=== PATIENT | male | born 1965 | race Caucasian/White ===

== ENCOUNTER 2019-09-27 19:08 | Emergency (ER) | payer OTHER ==
--- NOTE | 2019-09-27 19:40 | PDOC ---
History of Present Illness - General Chief Complaint: Injury Stated Complaint: FALL Time Seen by Provider: 09/27/19 19:39 History Source: Patient Exam Limitations: No Limitations - History of Present Illness Initial Comments: 09/27/19 20:03 54yM w PMHx multiple sclerosis presenting from [facility] w head, ruth knee, back , L wrist pain s/p fall. 6:30p dropped phone, fell forward from wheelchair, hitting L temporal head on grass, sustained abrasions and pain of ruth hands and knees, mild neck/lumbar pain. No LOC, not on anticoagulation. Denies chest pain , vision change, SOB, vision change, nausea/vomiting, AB pain. Cannot move ruth legs at baseline. Doesn't remember last tdap. Received tylenol at facility before coming to ED Past History - Past Medical History Allergies/Adverse Reactions: Allergies Allergy/AdvReac Type Severity Reaction Status Date / Time No Known Allergies Allergy Verified 09/27/19 20:12 Review of Systems - Review of Systems Constitutional: No: Chills, Fever HEENTM: No: Eye Pain, Recent change in vision, Nose Pain, Throat Pain Respiratory: No: Cough, Shortness of Breath Cardiac (ROS): No: Chest Pain, Irregular Heart Rate, Palpitations, Syncope, Chest Tightness ABD/GI: No: Abdominal Distended, Constipated, Diarrhea, Nausea, Vomiting : No: Burning, Dysuria, Frequency Musculoskeletal: Yes: Back Pain, Joint Pain Integumentary: Yes: Other (abrasions). No: Bruising, Dryness, Erythema Neurological: Yes: Headache. No: Seizure, Tingling Psychiatric: No: Anxiety, Depression, Stressors Endocrine: No: Excessive Sweating, Flushing, Intolerance to Cold, Intolerance to Heat Hematologic/Lymphatic: No: Anemia, Blood Clots *Physical Exam - Physical Exam General Appearance: Yes: Nourished, Appropriately Dressed, Mild Distress HEENT: positive: EOMI, LIAT, Normal Voice, Hearing Grossly Normal. negative: Scleral Icterus (R), Scleral Icterus (L), Nasal Congestion, Rhinorrhea Neck: positive: Tender (mild midline), Supple. negative: Rigid, Decreased range of motion (full ROM) Respiratory/Chest: positive: Lungs Clear, Normal Breath Sounds. negative: Chest Tender, Respiratory Distress, Crackles, Rales, Rhonchi, Stridor, Wheezing Cardiovascular: positive: Regular Rhythm, Regular Rate, S1, S2. negative: Edema , Murmur Gastrointestinal/Abdominal: positive: Normal Bowel Sounds, Flat, Soft. negative : Tender, Organomegaly, Distended, Guarding, Rebound, Tenderness, Hernia, Mass Rectal Exam: positive: normal rectal tone Musculoskeletal: positive: Vertebral Tenderness (mild lumbar), Other (no vertebral stepoffs). negative: CVA Tenderness (R), CVA Tenderness (L) Extremity: positive: Other (erythema, abrasions L knee, ruth palmar surfaces hands. mild tenderness L 3rd MCP, over patella ruth). 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 negative: Motor Strength 5/5 (1/5 BLE strength (baseline)), Numbness, Sensory Deficit, Confused, Disoriented Medical Decision Making - Medical Decision Making 09/27/19 20:12 Head/c-spine CT - no acute bleed/infarct/mass/fracture/subluxation of head or c- spine. Mild occipital scalp swelling, cavum septum vergae, mild ischemic white matter changes. Mild spinal canal narrowing L hand XR L/R knee XR lumbar/sacral XR --- 54yM w PMHx multiple sclerosis presenting w L temporal head, ruth knee, lumbar back, L wrist pain s/p mechanical fall. Neurovascular intact. Head/c-spine CT did not show acute bleed/infarct/mass/fracture/subluxation. Given tdap shot, ibuprofen for pain Anticipate DC home 09/27/19 21:22 Discharge - Discharge Information Problems reviewed: Yes Clinical Impression/Diagnosis: Abrasions of multiple sites Fall Qualifiers: Encounter type: initial encounter Qualified Code(s): W19.XXXA - Unspecified fall, initial encounter Condition: Good Disposition: HOME - Admission No - Follow up/Referral Referrals: Anita Romero MD [Primary Care Provider] - - Patient Discharge Instructions Additional Instructions: You were seen for pain and abrasions after falling. Your imaging did not show anything concerning. You were given medication and a tetanus shot Take tylenol or ibuprofen and ice your wounds for your pain. Come back to the ED if you have worsening pain, vision change, lose consciousness, cannot move your extremities, or start vomiting. - Post Discharge Activity
[2019-09-27] MEDS ORDERED: ACETAMINOPHEN 325 MG TABLET (FP) PO ONE (20:00)
[2019-09-27] MEDS ORDERED: ACETAMINOPHEN 325 MG TABLET (FP) ONE (20:17)
[2019-09-27 20:18] VITALS: BMI 60.5
[2019-09-27] MEDS ORDERED: IBUPROFEN 600 MG TABLET (FP) PO ONE ×2 (20:19→22:10)
--- NOTE | 2019-09-27 21:10 | PDOC ---
Documentation entered by Isidoro Fisher SCRIBE, acting as scribe for Kailey Nath MD. Kailey Nath MD: This documentation has been prepared by the Natalia cervantes Nirvannie, SCRIBE, under my direction and personally reviewed by me in its entirety. I confirm that the documentation accurately reflects all work, treatment, procedures, and medical decision making performed by me. Attending Attestation - Resident Resident Name: Neri Ambriz - ED Attending Attestation I have performed the following: I have examined & evaluated the patient, The case was reviewed & discussed with the resident, I agree w/resident's findings & plan, Exceptions are as noted - HPI HPI: 09/27/19 21:02 The patient is a 54 year old male, with a significant past medical history of MS (unable to move blt LE), who presents to the emergency department via EMS from [facility] s/p mechanical fall with headache, knee, back, and left wrist pain. As per patient, he was leaning forward in her wheelchair to grab her phone after she dropped it subsequently falling forward onto the grass. He denies any LOC or anticoagulation. He denies any recent fevers, chills, or dizziness. He denies any recent nausea, vomiting, diarrhea or constipation. He denies any recent chest pain or shortness of breath. He denies any recent dysuria, frequency, urgency or hematuria. Allergies: NKDA Primary Care Physician: Dr. Santizo - Physicial Exam PE: 09/27/19 20:28 GENERAL: The patient is in no acute distress, very pleasant and interactive with examiner ENT: Ears normal, nares patent, oropharynx clear without exudates. Moist mucous membranes. NECK: Normal range of motion, supple, (+) midline tenderness LUNGS: Breath sounds equal, clear to auscultation bilaterally. No wheezes, and no crackles. HEART:Regular rate and rhythm, normal S1 and S2 without murmur, rub or gallop. ABDOMEN: Soft, nontender, normoactive bowel sounds. EXTREMITIES: Unable to move lower extremities, moving upper extremities with no limitations NEUROLOGICAL: Cranial nerves II through XII grossly intact. Normal speech. No focal neurological deficits. SKIN: Abrasions noted to dorsum of bilateral hands, no bleeding - Medical Decision Making 09/27/19 20:29 54 yo M h/o MS, wheelchair bound presenting with a complaint of mechanical fall Pt has complaint of neck pain, hand pain, knee pain Will do: CT head and C spine Xray hands, knees Boostrix (pt has abrasions) Will plan to d/c home Pt is wheelchair bound and lives at [facility] 09/27/19 22:26 Head/c-spine CT - no acute bleed/infarct/mass/fracture/subluxation of head or c- spine. Mild occipital scalp swelling, cavum septum vergae, mild ischemic white matter changes. Mild spinal canal narrowing L hand XR - no fracture or dislocation L/R knee XR - no fracture or dislocation lumbar/sacral XR - no fracture or dislocaiton Will discharge to home Follow up with PMD
[2019-09-27] MEDS ORDERED: DIPHTH,PERTUSS(ACELL),TET 0.5 ML DISP.SYRIN IM ONE ×2 (22:15→23:15)
[2019-09-28 14:14] VITALS: BP 127/80; PULSE 82; TEMP 98.4
== END 2019-09-28 14:32 ==
LOC: JER 19:08
DX: S00.81XA Abrasion of other part of head, initial encounter (principal); M25.532 Pain in left wrist; M25.561 Pain in right knee; M25.562 Pain in left knee; M54.9 Dorsalgia, unspecified; W05.0XXA Fall from non-moving wheelchair, initial encounter; Y93.89 Activity, other specified; Y92.128 Other place in nursing home as the place of occurrence of the external cause; Y99.8 Other external cause status; G35 Multiple sclerosis; Z99.3 Dependence on wheelchair
CPT/HCPCS: 70450-TC; 72100-TC-FY; 72125-TC; 73110-TC-LT-FY; 73130-TC-LT-FY; 73562-TC-LT-FY; 73562-TC-RT-FY; 90715; 99282-25

== ENCOUNTER 2019-11-16 09:43 | Inpatient (IN) | payer OTHER ==
[2019-11-16] MEDS ORDERED: SODIUM CHLORIDE IV ONE (10:14)
--- NOTE | 2019-11-16 10:23 | PDOC ---
Attending Attestation - Resident Resident Name: AidenClaudia - ED Attending Attestation I have performed the following: I have examined & evaluated the patient, The case was reviewed & discussed with the resident, I agree w/resident's findings & plan, Exceptions are as noted - HPI HPI: 11/16/19 10:20 54 yo Male h/o MS here from [facility] wih fever, lethargy. pt denies recent cough, n/v or abd pain. states he does have lower abd pain. n other comlaints. does not self cath. - Physicial Exam PE: 11/16/19 10:22 awake alert dry mucous membranes. lungs with crackles to right base, heart normal tachycardia. abd soft distended, rlq ttp. no rebound no guarding. no cva tenderness. - Medical Decision Making 11/16/19 10:22 54 yo male h/o MS here with lethargy, fever. sepsis supsected. differential pna , uti, appendictis or other intrabdominal tendenress. mild rlq ttp on exam. plan cath ua, cultures labs cxr. tylenol and fluid. will yaneli require admission for sepsis
[2019-11-16] MEDS ORDERED: ACETAMINOPHEN INJECTION 100 ML IVPB ONE (10:33)
[2019-11-16 10:34] LABS: BASO % 0.8 % (0-2.0); HEMATOCRIT 43.1 % (35.4-49); HEMOGLOBIN 14.6 GM/dL (11.7-16.9); LYMPH % 7.7 % (8-40); MCH 30.7 pg (25.7-33.7); MCHC 33.8 g/dl (32.0-35.9); MEAN PLT VOLUME 8.8 fl (7.5-11.1); MONO % 9.6 % (3.8-10.2); NEUT % 81.9 % (42.8-82.8); PLATELET COUNT 270 K/MM3 (134-434); RBC 4.74 M/mm3 (4.00-5.60); RDW 13.3 % (11.9-15.9); WHITE BLOOD COUNT 11.6 K/mm3 (4.0-10.0)
[2019-11-16 10:48] LABS: ACTIVATED PTT 36.5 SECONDS (25.2-36.5)
[2019-11-16 10:51] LABS: INR 1.35 (0.83-1.09)
--- NOTE | 2019-11-16 10:58 | PDOC ---
History of Present Illness - General Chief Complaint: SIRS, Suspected/Possible Stated Complaint: SEPSIS Time Seen by Provider: 11/16/19 10:16 - History of Present Illness Initial Comments: 11/16/19 12:19 The patient is a 54 y/o male with a PMH of MS (lives @ [facility], non-ambulatory @ baseline) here with fever (Tmax 101 @ [facility]). Parents @ bedside assist in history and also report patient had a 2-3 minute episode of slurred speech yesterday which was self-resolving. The patient reports that he is more tired than usual the last few days and denies any focal weakness, numbness, tingling. Reports viral URI symptoms including runny nose and non-productive cough. 10 point ROS is negative including no chest pain, no shortness of breath, no abdominal pain, no nausea/vomiting, no diarrhea/constipation. PMD: Dr. Santizo As per EMR, patient has previous evaluations in our ED for fall (08/2019) and has h/o MRI in 2017 showing significant hyperintensity (demyelination) in the T2 region. Past History - Past Medical History Allergies/Adverse Reactions: Allergies Allergy/AdvReac Type Severity Reaction Status Date / Time No Known Allergies Allergy Verified 09/27/19 20:12 Home Medications: Ambulatory Orders Acetaminophen [Tylenol] 325 mg PO QID PRN 11/16/19 Baclofen [Lioresal -] 10 mg PO BID 11/16/19 Cyanocobalamin [Vitamin B12 -] 500 mcg PO BID 11/16/19 Dextran 70/Hypromellose/Pf [Artificial Tears Drops] 1 each OU TID PRN 11/16/19 Interferon Beta-1B [Betaseron] 0.3 mg SQ ASDIR 11/16/19 Lactobacil 2-S.thermo-Bifido 1 [Vsl#3 Capsule] 1 each PO DAILY 11/16/19 Polyethylene Glycol 3350 [Gavilax] 17 gm PO BID 11/16/19 Sennosides/Docusate Sodium [Senna Plus Tablet] 2 each PO HS 11/16/19 COPD: No GI Disorders: Yes (GERD) Other medical history: MS paraplegia - Immunization History Immunization Up to Date: Yes - Psycho Social/Smoking Cessation Hx Smoking History: Unknown if ever smoked Number of Cigarettes Smoked Daily: 2 Hx Alcohol Use: No Drug/Substance Use Hx: No Review of Systems - Review of Systems Constitutional: Yes: Fever HEENTM: No: Blurred Vision Respiratory: Yes: Cough. No: Shortness of Breath, Productive cough, Hemoptysis Cardiac (ROS): No: Chest Pain, Lightheadedness, Palpitations, Syncope ABD/GI: No: Constipated, Diarrhea, Nausea, Vomiting Neurological: No: Numbness, Tingling *Physical Exam - Vital Signs Last Vital Signs Temp Pulse Resp BP Pulse Ox 102.7 F H 92 H 22 H 125/76 96 11/16/19 09:57 11/16/19 09:57 11/16/19 09:57 11/16/19 09:57 11/16/19 10:51 - Physical Exam General Appearance: Yes: Nourished, Appropriately Dressed HEENT: positive: Normal Voice, Hearing Grossly Normal Neck: positive: Trachea midline, Supple Respiratory/Chest: positive: Lungs Clear, Normal Breath Sounds Cardiovascular: positive: S1, S2, Edema Vascular Pulses: Dorsalis-Pedis (R): 2+, Doralis-Pedis (L): 2+ Gastrointestinal/Abdominal: positive: Normal Bowel Sounds, Soft, Other (mild RLQ TTP) Musculoskeletal: negative: CVA Tenderness (R), CVA Tenderness (L) Extremity: positive: Normal Capillary Refill, Normal Inspection Integumentary: positive: Normal Color, Dry, Warm 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 negative: Facial Droop, Confused, Disoriented ED Treatment Course - LABORATORY CBC & Chemistry Diagram: 11/17/19 05:25 11/17/19 05:25 - ADDITIONAL ORDERS Additional order review: Laboratory Results 11/16/19 11/16/19 10:00 10:00 PT with INR 16.00 H INR 1.35 H PTT (Actin FS) 36.5 VBG pH Cancelled POC VBG pCO2 Cancelled POC VBG pO2 Cancelled VBG HCO3 Cancelled VBG O2 Sat (Noble) Cancelled VBG Base Excess Cancelled 11/16/19 10:00 RBC 4.74 MCV 91.0 MCHC 33.8 RDW 13.3 MPV 8.8 Neutrophils % 81.9 Lymphocytes % 7.7 L Monocytes % 9.6 Eosinophils % 0.0 Basophils % 0.8 Medical Decision Making - Medical Decision Making 54 y/o male w/MS here w/fever and viral URI symptoms. Also witnessed intermittent episode of slurred speech yesterday. Febrile (102.7) and RR 22 at presentation. Adult ED sepsis initiated. PE significant for mild RLQ TTP w/o peritoneal sign. Will evaluate for CVA/TIA. Consider PNA, UTI, Influenza as possible source of sepsis. ED Course: Patient Influenza A positive Iso precautions + Oseltamavir given patient's coming from assisted living facility will admit Head CT negative Case d/w Dr. Janet Cloud. Patient admitted to inpatient medicine service. Clinical Impression: Influenza A Discharge - Discharge Information Problems reviewed: Yes Clinical Impression/Diagnosis: Influenza A Condition: Fair - Admission Yes - Follow up/Referral - Patient Discharge Instructions - Post Discharge Activity
[2019-11-16 11:08] LABS: VENOUS PC02 32.6 mmHg (38-52); VENOUS PH 7.45 (7.31-7.41)
[2019-11-16 11:10] LABS: ALBUMIN 3.1 g/dl (3.4-5.0); ALK PHOS 122 U/L (45-117); ANION GAP 8 MMOL/L (8-16); BILIRUBIN,TOTAL 0.4 mg/dL (0.2-1); BLOOD UREA NITROGEN 19.5 mg/dL (7-18); CALCIUM 8.1 mg/dL (8.5-10.1); CHLORIDE 108 mmol/L (98-107); CO2 23 mmol/L (21-32); GLUCOSE,RANDOM 105 mg/dL (74-106); POTASSIUM 3.8 mmol/L (3.5-5.1); SGOT/AST 30 U/L (15-37); SGPT/ALT 46 U/L (13-61); SODIUM 138 mmol/L (136-145); TOT PROT 6.7 g/dl (6.4-8.2)
[2019-11-16] MEDS ORDERED: ACETAMINOPHEN 1000 MG/100 ML VIAL (NON FORMULARY) IVPB ONE (11:13)
[2019-11-16] MEDS ORDERED: OSELTAMIVIR PHOSPHATE 75 MG CAPSULE PO ONE (11:40)
[2019-11-16] MEDS ORDERED: OSELTAMIVIR PHOSPHATE 75 MG CAPSULE ONE (12:14)
[2019-11-16 12:42] LABS: URINE APPEARANCE CLEAR; URINE BILIRUBIN NEGATIVE (NEGATIVE); URINE COLOR YELLOW; URINE GLUCOSE (UA) NEGATIVE (NEGATIVE); URINE KETONE TRACE (NEGATIVE); URINE LEUK ESTERASE NEGATIVE (NEGATIVE); URINE NITRITE NEGATIVE (NEGATIVE); URINE PROTEIN TRACE (NEGATIVE); URINE UROBILINOGEN 0.2 mg/dL (0.2-1.0)
--- NOTE | 2019-11-16 13:37 | HP ---
Admitting History and Physical - Primary Care Physician PCP: Anita Romero - Admission History of Present Illness: patient seen and examined in the emergency room Chart is reviewed Case discussed with emergency room attending and resident In summary The patient is a 54 y/o male with a PMH of MS (lives @ [facility], non-ambulatory @ baseline----sensitivity to fever Workup in the emergency room--- positive for influenza A CT head negative as well as chest x-ray temp of 102 in the emergency room Cultures sent Will be admitted to floor Tamiflu and Tylenol given Patient alert and awake Comfortable feels better History Source: Patient, Medical Record Limitations to Obtaining History: No Limitations - Smoking History Smoking history: Unknown if ever smoked Aproximately how many cigarettes per day: 2 - Alcohol/Substance Use Hx Alcohol Use: No Home Medications - Allergies Allergies/Adverse Reactions: Allergies Allergy/AdvReac Type Severity Reaction Status Date / Time No Known Allergies Allergy Verified 09/27/19 20:12 - Home Medications Home Medications: Ambulatory Orders Acetaminophen [Tylenol] 325 mg PO QID PRN 11/16/19 Baclofen [Lioresal -] 10 mg PO BID 11/16/19 Cyanocobalamin [Vitamin B12 -] 500 mcg PO BID 11/16/19 Dextran 70/Hypromellose/Pf [Artificial Tears Drops] 1 each OU TID PRN 11/16/19 Interferon Beta-1B [Betaseron] 0.3 mg SQ ASDIR 11/16/19 Lactobacil 2-S.thermo-Bifido 1 [Vsl#3 Capsule] 1 each PO DAILY 11/16/19 Polyethylene Glycol 3350 [Gavilax] 17 gm PO BID 11/16/19 Sennosides/Docusate Sodium [Senna Plus Tablet] 2 each PO HS 11/16/19 Review of Systems - Review of Systems Constitutional: reports: Fever, Weakness Eyes: reports: No Symptoms HENT: reports: No Symptoms Neck: reports: No Symptoms Cardiovascular: reports: No Symptoms Respiratory: reports: Cough, SOB Gastrointestinal: reports: No Symptoms Genitourinary: reports: No Symptoms Neurological: reports: Pre-Existing Deficit, Other Psychiatric: reports: No Symptoms Physical Examination Vital Signs: Vital Signs Temperature 98 F 11/16/19 13:22 Pulse Rate 81 11/16/19 13:22 Respiratory Rate 18 11/16/19 13:22 Blood Pressure 127/78 11/16/19 13:22 O2 Sat by Pulse Oximetry (%) 98 11/16/19 13:22 Constitutional: Yes: No Distress, Calm Eyes: Yes: Conjunctiva Clear HENT: Yes: Other (mild congestion) Neck: Yes: Supple, Other (no lymphadenopathy) Cardiovascular: Yes: Regular Rate and Rhythm Respiratory: Yes: CTA Bilaterally Gastrointestinal: Yes: Soft Edema: No Neurological: Yes: Alert, Pre-Existing Deficit Labs: CBC, BMP 11/16/19 10:00 11/16/19 10:00 Imaging - Results Chest X-ray: Report Reviewed Cat Scan: Report Reviewed Problem List - Problems (1) Influenza A Code(s): J10.1 - FLU DUE TO OTH IDENT INFLUENZA VIRUS W OTH RESP MANIFEST (2) Multiple sclerosis Code(s): G35 - MULTIPLE SCLEROSIS Assessment/Plan admit to floor droplet precautions Tamiflu Fluids Monitor labs Follow-up cultures DVT prophylaxis Further recommendations per clinical course Will follow
[2019-11-16] MEDS ORDERED: ACETAMINOPHEN 325 MG TABLET (FP) PO PRN (13:38)
[2019-11-16] MEDS ORDERED: ARTIFICIAL TEARS (POLYVINYL ALCOHOL) OPTH DROPS OU PRN (13:38)
[2019-11-16] MEDS: D5-1/2NS+20 MEQ KCL - 20 MEQ/1,000 ML INFUS.BAG IV SCH (14:00)
[2019-11-16] MEDS ORDERED: ACETAMINOPHEN 325 MG TABLET (FP) ONE (20:40)
[2019-11-16] MEDS ORDERED: BACLOFEN 10 MG TABLET (FP) ONE (22:29)
[2019-11-16] MEDS: BACLOFEN 10 MG TABLET (FP) PO SCH (22:52)
[2019-11-16] MEDS: SENNOSIDES/DOCUSATE COMBO (SENNA PLUS) TABLET (UD) PO SCH (22:52)
[2019-11-16] MEDS: CYANOCOBALAMIN 1,000 MCG TABLET (FP) PO SCH (22:52)
[2019-11-16] MEDS: POLYETHYLENE GLYCOL 3350 119 GM BTL PO SCH (23:29)
[2019-11-17 06:07] LABS: BASO % 0.9 % (0-2.0); EOS % 0.1 % (0-4.5); HEMOGLOBIN 14.4 GM/dL (11.7-16.9); MCH 30.9 pg (25.7-33.7); MCHC 34.3 g/dl (32.0-35.9); MEAN PLT VOLUME 8.4 fl (7.5-11.1); MONO % 11.9 % (3.8-10.2); NEUT % 68.1 % (42.8-82.8); PLATELET COUNT 227 K/MM3 (134-434); RBC 4.67 M/mm3 (4.00-5.60); RDW 13.3 % (11.9-15.9); WHITE BLOOD COUNT 6.9 K/mm3 (4.0-10.0)
[2019-11-17 06:33] LABS: ALBUMIN 2.9 g/dl (3.4-5.0); BILIRUBIN,TOTAL 0.4 mg/dL (0.2-1); BLOOD UREA NITROGEN 11.6 mg/dL (7-18); CALCIUM 8.2 mg/dL (8.5-10.1); CREATININE 0.8 mg/dL (0.55-1.3); POTASSIUM 3.9 mmol/L (3.5-5.1); TOT PROT 6.4 g/dl (6.4-8.2)
--- NOTE | 2019-11-17 10:11 | EKG ---
Test Reason : Blood Pressure : / mmHG Vent. Rate : 094 BPM Atrial Rate : 094 BPM P-R Int : 134 ms QRS Dur : 084 ms QT Int : 494 ms P-R-T Axes : 058 018 057 degrees QTc Int : 617 ms NORMAL SINUS RHYTHM LOW VOLTAGE QRS SEPTAL INFARCT , AGE UNDETERMINED ABNORMAL ECG NO PREVIOUS ECGS AVAILABLE Confirmed by Nannette Gordillo ([id number]) on 11/17/2019 10:10:44 AM Referred By: Confirmed By:Nannette Gordillo
[2019-11-17] MEDS: LACTOBACILLUS ACIDOPHILUS 1 TABLET PO SCH (11:00)
[2019-11-17] MEDS: BACLOFEN 10 MG TABLET (FP) PO SCH ×2 (11:01→22:03)
[2019-11-17] MEDS: ENOXAPARIN NA (PORCINE) 40 MG/0.4 ML DISP.SYRIN SQ SCH (11:01)
[2019-11-17] MEDS: CYANOCOBALAMIN 1,000 MCG TABLET (FP) PO SCH ×2 (11:02→22:03)
[2019-11-17] MEDS: POLYETHYLENE GLYCOL 3350 119 GM BTL PO SCH ×2 (12:02→22:02)
--- NOTE | 2019-11-17 12:34 | PN ---
Progress Note (short form) - Note Progress Note: Pt seen/ examined in er feesl better cough + afebrile Vital Signs Temp 98.7 F 11/16/19 22:50 Pulse 77 11/17/19 07:11 Resp 23 H 11/17/19 07:11 BP 111/56 L 11/17/19 07:11 Pulse Ox 96 11/17/19 07:11 Intake & Output 11/16/19 11/17/19 11/17/19 23:59 11:59 23:59 Intake Total 1500 Output Total 200 Balance 1300 Intake: IV 1500 Normal Saline - 2,273 ml 1500 @ 1136.5 mls/hr IV ONCE ONE Rx#:[id number] Output: Urine 200 Straight Cath 200 Other: # Unmeasured Voids Straight Cath 1 Active Medications Acetaminophen (Tylenol -) 325 mg PO Q6H PRN PRN Reason: FEVER Last Admin: 11/16/19 20:48 Dose: 325 mg Artificial Tears (Artificial Tears) 1 drop OU TID PRN PRN Reason: DRY EYES Baclofen (Lioresal -) 10 mg PO BID [facility] Last Admin: 11/17/19 11:01 Dose: 10 mg Cyanocobalamin (Vitamin B12 -) 500 mcg PO BID [facility] Last Admin: 11/17/19 11:02 Dose: 500 mcg Enoxaparin Sodium (Lovenox -) 40 mg SQ DAILY [facility] Last Admin: 11/17/19 11:01 Dose: 40 mg Potassium Chloride/Dextrose/Sod Cl (D5-1/2ns+20 Meq Kcl -) 20 meq in 1,000 mls @ 100 mls/hr IV ASDIR [facility] Last Admin: 11/16/19 14:00 Dose: 100 mls/hr Lactobacillus Acidophilus (Bacid -) 1 tab PO DAILY [facility] Last Admin: 11/17/19 11:00 Dose: 1 tab Polyethylene Glycol (Miralax (For Daily Use) -) 17 gm PO BID [facility] Last Admin: 11/17/19 12:02 Dose: Not Given Senna/Docusate Sodium (Pericolace -) 2 tablet PO HS [facility] Last Admin: 11/16/19 22:52 Dose: 2 tablet CBC, BMP 11/17/19 05:25 11/17/19 05:25 Microbiology 11/16/19 11:00 Blood Culture - Preliminary Blood - Peripheral Venous NO GROWTH OBTAINED AFTER 24 HOURS, INCUBATION TO CONTINUE FOR 4 DAYS. 11/16/19 10:00 Blood Culture - Preliminary Blood - Peripheral Venous NO GROWTH OBTAINED AFTER 24 HOURS, INCUBATION TO CONTINUE FOR 4 DAYS. 11/16/19 12:25 Urine Culture - Final Urine - Urine Clean Catch NO GROWTH OBTAINED Physical Examination Constitutional: Yes: No Distress, Calm Eyes: Yes: Conjunctiva Clear HENT: Yes: Other (mild congestion) Neck: Yes: Supple, Other (no lymphadenopathy) Cardiovascular: Yes: Regular Rate and Rhythm Respiratory: Yes: CTA Bilaterally Gastrointestinal: Yes: Soft Edema: No Neurological: Yes: Alert, Pre-Existing Deficit Imaging - Results Chest X-ray: Report Reviewed Cat Scan: Report Reviewed Problem List - Problems (1) Influenza A Code(s): J10.1 - FLU DUE TO OTH IDENT INFLUENZA VIRUS W OTH RESP MANIFEST (2) Multiple sclerosis Code(s): G35 - MULTIPLE SCLEROSIS Assessment/Plan better droplet precautions Tamiflu Fluids Monitor labs Follow-up cultures-- ve so far DVT prophylaxis Further recommendations per clinical course Will follow Problem List - Problems (1) Influenza A Code(s): J10.1 - FLU DUE TO OTH IDENT INFLUENZA VIRUS W OTH RESP MANIFEST (2) Multiple sclerosis Code(s): G35 - MULTIPLE SCLEROSIS
[2019-11-17] MEDS: D5-1/2NS+20 MEQ KCL - 20 MEQ/1,000 ML INFUS.BAG IV SCH (15:30)
[2019-11-17 17:24] VITALS: BMI 27.6
[2019-11-17] MEDS ORDERED: PT OWN MED DRAWER 7, Y5N ONE (18:15)
[2019-11-17] MEDS: SENNOSIDES/DOCUSATE COMBO (SENNA PLUS) TABLET (UD) PO SCH (22:02)
[2019-11-18] MEDS: D5-1/2NS+20 MEQ KCL - 20 MEQ/1,000 ML INFUS.BAG IV SCH ×3 (00:32→22:04)
[2019-11-18] MEDS: POLYETHYLENE GLYCOL 3350 119 GM BTL PO SCH ×2 (10:34→22:09)
--- NOTE | 2019-11-18 10:39 | PN ---
Progress Note (short form) - Note Progress Note: coughing+ no sob Vital Signs - 24 hr 11/17/19 11/17/19 11/18/19 21:00 22:00 05:50 Temperature 98.5 F 98.5 F Pulse Rate 72 66 Respiratory 20 20 Rate Blood Pressure 132/82 130/90 O2 Sat by Pulse 95 95 Oximetry (%) 11/18/19 11/18/19 06:00 14:00 Temperature 99.2 F 98.3 F Pulse Rate 65 72 Respiratory 20 20 Rate Blood Pressure 122/71 128/71 O2 Sat by Pulse Oximetry (%) Current Medications Generic Name Dose Route Start Last Admin Trade Name Freq PRN Reason Stop Dose Admin Acetaminophen 325 mg 11/16/19 13:38 11/16/19 20:48 Tylenol - PO 325 mg Q6H PRN Administration FEVER Albuterol/Ipratropium 1 amp 11/18/19 11:33 Duoneb - NEB Q6H PRN SHORTNESS OF BREATH Artificial Tears 1 drop 11/16/19 13:38 Artificial Tears OU TID PRN DRY EYES Baclofen 10 mg 11/16/19 22:00 11/18/19 11:24 Lioresal - PO 10 mg BID KARIN Administration Cyanocobalamin 500 mcg 11/16/19 22:00 11/18/19 11:24 Vitamin B12 - PO 500 mcg BID KARIN Administration Enoxaparin Sodium 40 mg 11/17/19 10:00 11/18/19 11:24 Lovenox - SQ 40 mg DAILY KARIN Administration Potassium Chloride/Dextrose/Sod Cl 20 meq in 1,000 mls @ 100 mls/hr 11/16/19 13:45 11/18/19 11:20 D5-1/2ns+20 Meq Kcl - IV 100 mls/hr ASDIR KARIN Administration Lactobacillus Acidophilus 1 tab 11/17/19 10:00 11/18/19 11:24 Bacid - PO 1 tab DAILY KARIN Administration Oseltamivir Phosphate 75 mg 11/18/19 10:00 11/18/19 11:24 Tamiflu - PO 11/22/19 22:01 75 mg BID KARIN Administration Polyethylene Glycol 17 gm 11/16/19 22:00 11/18/19 10:34 Miralax (For Daily Use) - PO Not Given BID KARIN Senna/Docusate Sodium 2 tablet 11/16/19 22:00 11/17/19 22:02 Pericolace - PO 2 tablet HS KARIN Administration S1 S2 RRR Lungs ronchi+ scattered Abd- soft, NT no edema PLAN add duonebs as needed continue Tamiflu continue meds iv fluids Heparin sc for DVT prophylaxis Problem List - Problems (1) Influenza A Code(s): J10.1 - FLU DUE TO OTH IDENT INFLUENZA VIRUS W OTH RESP MANIFEST (2) Multiple sclerosis Code(s): G35 - MULTIPLE SCLEROSIS
[2019-11-18] MEDS ORDERED: PT OWN MED DRAWER 7, Y5N ONE (11:17)
[2019-11-18] MEDS: LACTOBACILLUS ACIDOPHILUS 1 TABLET PO SCH (11:24)
[2019-11-18] MEDS: ENOXAPARIN NA (PORCINE) 40 MG/0.4 ML DISP.SYRIN SQ SCH (11:24)
[2019-11-18] MEDS: OSELTAMIVIR PHOSPHATE 75 MG CAPSULE PO SCH ×2 (11:24→22:06)
[2019-11-18] MEDS: BACLOFEN 10 MG TABLET (FP) PO SCH ×2 (11:24→22:09)
[2019-11-18] MEDS: CYANOCOBALAMIN 1,000 MCG TABLET (FP) PO SCH ×2 (11:24→22:06)
[2019-11-18] MEDS: ALBUTEROL SO4 2.5/IPRATROPIUM 0.5 INH SOL 3 ML VIAL.NEB. NEB PRN (20:10)
[2019-11-18] MEDS: SENNOSIDES/DOCUSATE COMBO (SENNA PLUS) TABLET (UD) PO SCH (22:09)
[2019-11-19] MEDS: guaiFENesin 200 MG/10 ML 10 ML UNIT-DOSE CUPS PO PRN ×2 (01:45→09:22)
[2019-11-19] MEDS: ALBUTEROL SO4 2.5/IPRATROPIUM 0.5 INH SOL 3 ML VIAL.NEB. NEB PRN ×2 (07:44→19:59)
[2019-11-19] MEDS ORDERED: PT OWN MED DRAWER 7, Y5N ONE (09:17)
[2019-11-19] MEDS: BACLOFEN 10 MG TABLET (FP) PO SCH (09:22)
[2019-11-19] MEDS: LACTOBACILLUS ACIDOPHILUS 1 TABLET PO SCH (09:22)
[2019-11-19] MEDS: OSELTAMIVIR PHOSPHATE 75 MG CAPSULE PO SCH (09:22)
[2019-11-19] MEDS: ENOXAPARIN NA (PORCINE) 40 MG/0.4 ML DISP.SYRIN SQ SCH (09:22)
[2019-11-19] MEDS: POLYETHYLENE GLYCOL 3350 119 GM BTL PO SCH (09:22)
[2019-11-19] MEDS: CYANOCOBALAMIN 1,000 MCG TABLET (FP) PO SCH (09:22)
--- NOTE | 2019-11-19 13:31 | DS ---
Physical Examination Vital Signs: Vital Signs Temperature 98.5 F 11/19/19 06:00 Pulse Rate 69 11/19/19 06:00 Respiratory Rate 20 11/19/19 06:00 Blood Pressure 116/75 11/19/19 06:00 O2 Sat by Pulse Oximetry (%) 100 11/18/19 20:12 Constitutional: Yes: No Distress, Calm Cardiovascular: Yes: Regular Rate and Rhythm Respiratory: Yes: Diminished. No: Rales, Rhonchi Gastrointestinal: Yes: Normal Bowel Sounds, Soft. No: Tenderness Edema: No Neurological: Yes: Alert, Oriented Labs: CBC, BMP 11/17/19 05:25 11/17/19 05:25 Discharge Summary Problems reviewed: Yes Reason For Visit: INFLUENZA TYPE A Current Active Problems Influenza A (Acute) Multiple sclerosis (Acute) Hospital Course: Admitting History and Physical - Primary Care Physician PCP: Anita Romero - Admission History of Present Illness: patient seen and examined in the emergency room Chart is reviewed Case discussed with emergency room attending and resident In summary The patient is a 54 y/o male with a PMH of MS ([facility], non-ambulatory @ baseline----sensitivity to fever Workup in the emergency room--- positive for influenza A CT head negative as well as chest x-ray temp of 102 in the emergency room Hospital course Cultures negative Pt on Tamiflu started on Duonebs for wheezing Pt feeling better afebrile O2 sat 100% on RA need to complete Tamiflu Stable for dc to NH Condition: Fair - Instructions Referrals: Anita Romero MD [Primary Care Provider] - Disposition: HALFWAY FACILITY - Home Medications Comprehensive Discharge Medication List: Ambulatory Orders Acetaminophen [Tylenol] 325 mg PO QID PRN 11/16/19 Baclofen [Lioresal -] 10 mg PO BID 11/16/19 Cyanocobalamin [Vitamin B12 -] 500 mcg PO BID 11/16/19 Dextran 70/Hypromellose/Pf [Artificial Tears Drops] 1 each OU TID PRN 11/16/19 Interferon Beta-1B [Betaseron] 0.3 mg SQ ASDIR 11/16/19 Lactobacil 2-S.thermo-Bifido 1 [Vsl#3 Capsule] 1 each PO DAILY 11/16/19 Polyethylene Glycol 3350 [Gavilax] 17 gm PO BID 11/16/19 Sennosides/Docusate Sodium [Senna Plus Tablet] 2 each PO HS 11/16/19
[2019-11-19 19:56] VITALS: BP 136/59; PULSE 70; TEMP 98.1
== END 2019-11-19 20:45 | DRG 113 ==
LOC: JER 09:43 → SUPCPDRO 09:43 → JERBED 12:27 → J8W 11-17 17:15
PROVIDERS: ADMIT Internal Medicine; ATTEND Internal Medicine
DX: J09.X2 Influenza due to identified novel influenza A virus with other respiratory manifestations (principal); G35 Multiple sclerosis; G82.20 Paraplegia, unspecified
CPT/HCPCS: 36415; 70450-TC; 71045-TC-FY; 80053; 81003; 82803; 83605; 84484; 85025; 85610; 85730; 87040; 87086; 87804; 93005; 93010; 94640; 97161-GP; 99285-25; J0131; J0475; J7030

== ENCOUNTER 2021-01-23 20:04 | Inpatient (IN) | payer OTHER ==
[2021-01-23 21:36] LABS: BASO % 0.4 % (0-2.0); EOS % 0.2 % (0-4.5); HEMATOCRIT 43.9 % (35.4-49); HEMOGLOBIN 14.5 GM/dL (11.7-16.9); LYMPH % 7.3 % (8-40); MCH 29.8 pg (25.7-33.7); MEAN CELL VOLUME 90.2 fl (80-96); MEAN PLT VOLUME 9.8 fl (7.5-11.1); MONO % 8.1 % (3.8-10.2); PLATELET COUNT 326 K/MM3 (134-434); RBC 4.87 M/mm3 (4.00-5.60); RDW 14.9 % (11.9-15.9); WHITE BLOOD COUNT 28.5 K/mm3 (4.0-10.0)
[2021-01-23 21:47] LABS: INR 1.49 (0.83-1.09); PROTHROMBIN TIME (PATIENT) 17.8 SEC (9.7-13.0)
[2021-01-23 21:50] LABS: ACTIVATED PTT 32.1 SECONDS (25.2-36.5)
[2021-01-23 21:58] LABS: CHLORIDE 102 mmol/L (98-107); SODIUM 137 mmol/L (136-145)
[2021-01-23 22:02] LABS: CALCIUM 9.1 mg/dL (8.5-10.1)
[2021-01-23 22:03] LABS: ALBUMIN 2.4 g/dl (3.4-5.0); ANION GAP 9 MMOL/L (8-16); BLOOD UREA NITROGEN 30.4 mg/dL (7-18); CO2 26 mmol/L (21-32); GLUCOSE,RANDOM 109 mg/dL (74-106)
[2021-01-23 22:05] LABS: SGPT/ALT 156 U/L (13-61)
[2021-01-23 22:06] LABS: CREATININE 1.1 mg/dL (0.55-1.3); SGOT/AST 45 U/L (15-37); TOT PROT 6.8 g/dl (6.4-8.2)
[2021-01-23 22:07] LABS: ALK PHOS 212 U/L (45-117)
[2021-01-23 22:15] LABS: ANISOCYTOSIS 1+; MACROCYTOSIS 0; PLATELET ESTIMATE NORMAL
[2021-01-23] MEDS ORDERED: PIPERACILLIN/TAZOB 3.375 GM 3.375 GM in DEXTROSE 5%-WATER - 50 ML IVPB ONE (22:33)
[2021-01-24] MEDS ORDERED: PIPERACILLIN/TAZOB 3.375 GM 3.375 GM/50 ML BAG IVPB ONE (01:06)
[2021-01-24 02:07] LABS: EPI CELLS 17 /uL (0-25.1); HYALINE CASTS 4 /uL (0-3.1); PH,URINE 5.5 (5.0-8.0); URINE APPEARANCE CLEAR; URINE BACTERIA 6 /uL (0-1359); URINE BILIRUBIN NEGATIVE (NEGATIVE); URINE COLOR DK YELLOW; URINE GLUCOSE (UA) NEGATIVE (NEGATIVE); URINE KETONE TRACE (NEGATIVE); URINE LEUK ESTERASE NEGATIVE (NEGATIVE); URINE NITRITE NEGATIVE (NEGATIVE); URINE PROTEIN 2+ (NEGATIVE); URINE RBC 77 /uL (0-23.9); URINE WBC 17 /uL (0-25.8)
[2021-01-24] MEDS ORDERED: LACTATED RINGERS SOLUTION 1,000 ML IV SCH ×3 (03:45→15:55)
[2021-01-24 06:37] LABS: BASO % 0.4 % (0-2.0); EOS % 0.2 % (0-4.5); HEMATOCRIT 42.4 % (35.4-49); HEMOGLOBIN 14.3 GM/dL (11.7-16.9); LYMPH % 4.1 % (8-40); MCH 30.5 pg (25.7-33.7); MCHC 33.8 g/dl (32.0-35.9); MEAN CELL VOLUME 90.5 fl (80-96); MEAN PLT VOLUME 9.3 fl (7.5-11.1); MONO % 6.3 % (3.8-10.2); PLATELET COUNT 321 K/MM3 (134-434); RBC 4.69 M/mm3 (4.00-5.60)
[2021-01-24 06:43] LABS: INR 1.44 (0.83-1.09); PROTHROMBIN TIME (PATIENT) 17.2 SEC (9.7-13.0)
[2021-01-24 06:50] LABS: WHITE BLOOD COUNT 30.2 K/mm3 (4.0-10.0)
[2021-01-24 07:22] LABS: CALCIUM 8.7 mg/dL (8.5-10.1)
[2021-01-24 07:23] LABS: ALBUMIN 2.4 g/dl (3.4-5.0); BLOOD UREA NITROGEN 24.3 mg/dL (7-18)
[2021-01-24 07:26] LABS: BILIRUBIN,TOTAL 1.4 mg/dL (0.2-1); CREATININE 0.9 mg/dL (0.55-1.3)
[2021-01-24 07:27] LABS: TOT PROT 6.8 g/dl (6.4-8.2)
[2021-01-24] MEDS ORDERED: PIPERACILLIN/TAZOB 3.375 GM 3.375 GM in DEXTROSE 5%-WATER - 50 ML IVPB ONE (07:39)
[2021-01-24] MEDS ORDERED: BUPIVACAINE HCL 100 ML ONE (10:40)
[2021-01-24] MEDS ORDERED: PROPOFOL 20 ML ONE (11:15)
[2021-01-24] MEDS ORDERED: DEXAMETHASONE SOD PHOSPHATE 4 MG/1 ML VIAL ONE (11:15)
[2021-01-24] MEDS ORDERED: ONDANSETRON 4 MG/2 ML VIAL ONE (11:15)
[2021-01-24] MEDS ORDERED: ROCURONIUM BROMIDE 100 MG/10 ML VIAL ONE ×2 (11:16→13:21)
[2021-01-24] MEDS ORDERED: MIDAZOLAM HCL 2 MG/2 ML SINGLE DOSE VIAL ONE (11:16)
[2021-01-24] MEDS ORDERED: HYDROmorphone HCl 2 MG/ML VIAL ONE ×2 (12:49→13:18)
[2021-01-24] MEDS ORDERED: LABETALOL HCL 5 MG/1 ML (100MG/20 ML VIAL) ONE (13:18)
[2021-01-24] MEDS ORDERED: METOPROLOL TARTRATE 5 MG/5 ML VIAL ONE (13:19)
[2021-01-24] MEDS ORDERED: NEOSTIGMINE METHYLSULFATE 0.5 MG/ML - 10 ML MDV ONE (13:31)
[2021-01-24] MEDS ORDERED: GLYCOPYRROLATE 0.2 MG/1 ML VIAL ONE (13:31)
[2021-01-24] MEDS ORDERED: BUPIVACAINE HCL/PF 0.5% (5 MG/ML) 30 ML VIAL IJ ONE ×4 (14:00→14:45)
[2021-01-24] MEDS ORDERED: ONDANSETRON 4 MG/2 ML VIAL IVPUSH PRN ×2 (15:15→16:04)
[2021-01-24] MEDS ORDERED: HYDROmorphone HCl 2 MG/ML VIAL IVPUSH PRN ×2 (15:16)
[2021-01-24] MEDS ORDERED: morphine SULFATE 4 MG/ML VIAL IVPUSH PRN (15:24)
[2021-01-24] MEDS ORDERED: INTERFERON BETA 0.3 MG SQ SCH (15:30)
[2021-01-24] MEDS ORDERED: HYDROmorphone *PCA* 10MG/50ML DISP.SYRIN ONE (15:59)
[2021-01-24] MEDS: HYDROmorphone *PCA* 10MG/50ML DISP.SYRIN PCA SCH ×2 (16:05→19:44)
[2021-01-24] MEDS: SODIUM CHLORIDE 1,000 ML IV SCH (17:28)
[2021-01-24] MEDS ORDERED: PIPERACILLIN/TAZOB 2.25 GM 2.25 GM in DEXTROSE 5%-WATER - 50 ML IVPB SCH (18:00)
[2021-01-24] MEDS ORDERED: PIPERACILLIN/TAZOBACTAM 4.5 GM VIAL IVPB ONE (18:03)
[2021-01-24] MEDS ORDERED: DEXTROSE 5%-WATER 100 ML IVPB ONE (18:03)
[2021-01-24] MEDS: PIPERACILLIN/TAZOB 4.5 GM 4.5 GM in DEXTROSE 5%-WATER 100 ML IVPB SCH (18:16)
[2021-01-24] MEDS ORDERED: PNEUMOC 13-VAL CONJ-DIP CRM/PF 0.5 ML DISP.SYRIN IM ONE (18:28)
[2021-01-24] MEDS ORDERED: PNEUMOCOCCAL 23 VACCINE 0.5 ML VIAL IM ONE (20:00)
[2021-01-24 20:21] LABS: HEMOGLOBIN 11.9 GM/dL (11.7-16.9); MCH 30.2 pg (25.7-33.7); MEAN CELL VOLUME 91.3 fl (80-96); RBC 3.95 M/mm3 (4.00-5.60); RDW 15.2 % (11.9-15.9); WHITE BLOOD COUNT 28.4 K/mm3 (4.0-10.0)
[2021-01-24 20:22] LABS: BASO % 0.2 % (0-2.0); LYMPH % 2.7 % (8-40); MEAN PLT VOLUME 10.2 fl (7.5-11.1); MONO % 4.1 % (3.8-10.2); PLATELET COUNT 278 K/MM3 (134-434)
[2021-01-24 22:22] LABS: ANISOCYTOSIS 1+; MACROCYTOSIS 1+; PLATELET ESTIMATE NORMAL
[2021-01-25] MEDS: SENNOSIDES/DOCUSATE COMBO (SENNA PLUS) TABLET (UD) PO SCH ×2 (00:54→22:02)
[2021-01-25] MEDS ORDERED: PIPERACILLIN/TAZOBACTAM 4.5 GM VIAL IVPB ONE ×5 (01:14→15:27)
[2021-01-25] MEDS ORDERED: DEXTROSE 5%-WATER 100 ML IVPB ONE ×3 (01:14→15:27)
[2021-01-25] MEDS: PIPERACILLIN/TAZOB 4.5 GM 4.5 GM in DEXTROSE 5%-WATER 100 ML IVPB SCH ×3 (01:59→17:53)
[2021-01-25] MEDS: SODIUM CHLORIDE 1,000 ML IV SCH ×3 (02:01→17:51)
[2021-01-25 08:29] LABS: HEMATOCRIT 31.6 % (35.4-49); HEMOGLOBIN 10.5 GM/dL (11.7-16.9); MCH 30.4 pg (25.7-33.7); MCHC 33.4 g/dl (32.0-35.9); MEAN CELL VOLUME 91.1 fl (80-96); MEAN PLT VOLUME 9.4 fl (7.5-11.1); PLATELET COUNT 264 K/MM3 (134-434); RBC 3.46 M/mm3 (4.00-5.60); RDW 15.1 % (11.9-15.9); WHITE BLOOD COUNT 19.2 K/mm3 (4.0-10.0)
[2021-01-25 08:30] LABS: BASO % 0.1 % (0-2.0); HEMATOCRIT 31.9 % (35.4-49); HEMOGLOBIN 10.6 GM/dL (11.7-16.9); LYMPH % 5.3 % (8-40); MCH 30.5 pg (25.7-33.7); MCHC 33.3 g/dl (32.0-35.9); MEAN CELL VOLUME 91.4 fl (80-96); MEAN PLT VOLUME 9.2 fl (7.5-11.1); MONO % 6.2 % (3.8-10.2); NEUT % 88.4 % (42.8-82.8); PLATELET COUNT 264 K/MM3 (134-434); RBC 3.49 M/mm3 (4.00-5.60); RDW 15.3 % (11.9-15.9); WHITE BLOOD COUNT 18.9 K/mm3 (4.0-10.0)
[2021-01-25 08:53] LABS: CALCIUM 7.9 mg/dL (8.5-10.1)
[2021-01-25 08:54] LABS: BLOOD UREA NITROGEN 24.9 mg/dL (7-18)
[2021-01-25 08:57] LABS: CREATININE 0.9 mg/dL (0.55-1.3)
[2021-01-25 08:58] LABS: BILIRUBIN,TOTAL 0.7 mg/dL (0.2-1); TOT PROT 5.2 g/dl (6.4-8.2)
[2021-01-25 09:31] LABS: ALBUMIN 1.8 g/dl (3.4-5.0)
[2021-01-25] MEDS: ENOXAPARIN NA (PORCINE) 40 MG/0.4 ML DISP.SYRIN SQ SCH (10:17)
[2021-01-25] MEDS: HYDROmorphone *PCA* 10MG/50ML DISP.SYRIN PCA SCH (19:47)
[2021-01-25] MEDS ORDERED: PCA PUMP NR ONE (19:51)
[2021-01-26] MEDS ORDERED: PIPERACILLIN/TAZOBACTAM 4.5 GM VIAL IVPB ONE ×4 (00:55→17:55)
[2021-01-26] MEDS ORDERED: DEXTROSE 5%-WATER 100 ML IVPB ONE ×4 (00:55→17:55)
[2021-01-26] MEDS: PIPERACILLIN/TAZOB 4.5 GM 4.5 GM in DEXTROSE 5%-WATER 100 ML IVPB SCH ×3 (01:46→18:01)
[2021-01-26] MEDS: SODIUM CHLORIDE 1,000 ML IV SCH ×4 (01:49→23:58)
[2021-01-26] MEDS: HYDROmorphone *PCA* 10MG/50ML DISP.SYRIN PCA SCH (07:12)
[2021-01-26 08:44] LABS: BASO % 0.3 % (0-2.0); EOS % 0.2 % (0-4.5); HEMATOCRIT 29.5 % (35.4-49); HEMOGLOBIN 9.6 GM/dL (11.7-16.9); LYMPH % 10.4 % (8-40); MCHC 32.7 g/dl (32.0-35.9); MEAN CELL VOLUME 91.7 fl (80-96); MEAN PLT VOLUME 9.8 fl (7.5-11.1); MONO % 6.9 % (3.8-10.2); NEUT % 82.2 % (42.8-82.8); PLATELET COUNT 254 K/MM3 (134-434); RBC 3.21 M/mm3 (4.00-5.60); RDW 15.3 % (11.9-15.9); WHITE BLOOD COUNT 13.9 K/mm3 (4.0-10.0)
[2021-01-26 08:59] LABS: CALCIUM 7.8 mg/dL (8.5-10.1)
[2021-01-26 09:01] LABS: ALBUMIN 1.7 g/dl (3.4-5.0)
[2021-01-26 09:04] LABS: BILIRUBIN,TOTAL 0.5 mg/dL (0.2-1); CREATININE 0.7 mg/dL (0.55-1.3)
[2021-01-26 09:05] LABS: TOT PROT 5.2 g/dl (6.4-8.2)
[2021-01-26 10:28] LABS: ANISOCYTOSIS 1+; MACROCYTOSIS 0; PLATELET ESTIMATE NORMAL
[2021-01-26] MEDS: ENOXAPARIN NA (PORCINE) 40 MG/0.4 ML DISP.SYRIN SQ SCH (11:03)
[2021-01-26] MEDS ORDERED: DOCUSATE SODIUM 100 MG CAPSULE (FP) PO PRN (12:00)
[2021-01-26] MEDS ORDERED: PT OWN MED DRAWER 7, Y5N ONE ×2 (15:29→22:00)
[2021-01-26] MEDS: MORPHINE SULFATE 2 MG/ML VIAL IVPUSH PRN (16:51)
[2021-01-26] MEDS ORDERED: PCA PUMP NR ONE (16:59)
[2021-01-26] MEDS: SENNOSIDES/DOCUSATE COMBO (SENNA PLUS) TABLET (UD) PO SCH (22:18)
[2021-01-27] MEDS ORDERED: DEXTROSE 5%-WATER 100 ML IVPB ONE ×3 (01:35→17:37)
[2021-01-27] MEDS ORDERED: PIPERACILLIN/TAZOBACTAM 4.5 GM VIAL IVPB ONE ×3 (01:35→17:37)
[2021-01-27] MEDS: PIPERACILLIN/TAZOB 4.5 GM 4.5 GM in DEXTROSE 5%-WATER 100 ML IVPB SCH ×3 (01:50→17:39)
[2021-01-27 08:36] LABS: BASO % 0.8 % (0-2.0); EOS % 1.4 % (0-4.5); HEMATOCRIT 32.2 % (35.4-49); HEMOGLOBIN 10.7 GM/dL (11.7-16.9); LYMPH % 12.9 % (8-40); MCH 30.2 pg (25.7-33.7); MCHC 33.2 g/dl (32.0-35.9); MEAN PLT VOLUME 8.9 fl (7.5-11.1); MONO % 7.1 % (3.8-10.2); NEUT % 77.8 % (42.8-82.8); PLATELET COUNT 324 K/MM3 (134-434); RBC 3.54 M/mm3 (4.00-5.60); RDW 15.1 % (11.9-15.9); WHITE BLOOD COUNT 10.9 K/mm3 (4.0-10.0)
[2021-01-27 08:40] LABS: BLOOD UREA NITROGEN 11.9 mg/dL (7-18); CALCIUM 7.8 mg/dL (8.5-10.1)
[2021-01-27 08:43] LABS: CREATININE 0.7 mg/dL (0.55-1.3)
[2021-01-27 08:44] LABS: BILIRUBIN,TOTAL 0.5 mg/dL (0.2-1); TOT PROT 5.2 g/dl (6.4-8.2)
[2021-01-27] MEDS ORDERED: oxyCODONE HCL 5 MG TABLET PO PRN (08:53)
[2021-01-27] MEDS: SODIUM CHLORIDE 1,000 ML IV SCH (09:12)
[2021-01-27] MEDS: KETOROLAC TROMETHAMINE 15 MG/ML VIAL IVPUSH SCH ×3 (09:13→21:43)
[2021-01-27] MEDS: ENOXAPARIN NA (PORCINE) 40 MG/0.4 ML DISP.SYRIN SQ SCH (09:14)
[2021-01-27] MEDS: FAMOTIDINE 10 MG TABLET PO SCH (11:11)
[2021-01-27 11:30] LABS: ANISOCYTOSIS 1+; MACROCYTOSIS 1+; PLATELET ESTIMATE NORMAL
[2021-01-27] MEDS: MORPHINE SULFATE 2 MG/ML VIAL IVPUSH PRN ×2 (12:03→23:18)
[2021-01-27] MEDS ORDERED: SODIUM CHLORIDE 1,000 ML IV SCH (12:06)
[2021-01-27] MEDS: LACTOBACILLUS ACIDOPHILUS 1 TABLET PO SCH (17:39)
[2021-01-28] MEDS ORDERED: DEXTROSE 5%-WATER 100 ML IVPB ONE ×3 (00:37→17:08)
[2021-01-28] MEDS ORDERED: PIPERACILLIN/TAZOBACTAM 4.5 GM VIAL IVPB ONE ×3 (00:37→17:08)
[2021-01-28] MEDS: PIPERACILLIN/TAZOB 4.5 GM 4.5 GM in DEXTROSE 5%-WATER 100 ML IVPB SCH ×3 (01:26→17:18)
[2021-01-28] MEDS: MORPHINE SULFATE 2 MG/ML VIAL IVPUSH PRN ×3 (05:25→20:35)
[2021-01-28 09:21] LABS: ALBUMIN 1.9 g/dl (3.4-5.0)
[2021-01-28 09:22] LABS: BLOOD UREA NITROGEN 7.4 mg/dL (7-18); CALCIUM 7.5 mg/dL (8.5-10.1)
[2021-01-28 09:27] LABS: CREATININE 0.7 mg/dL (0.55-1.3)
[2021-01-28 09:28] LABS: BILIRUBIN,TOTAL 0.7 mg/dL (0.2-1); TOT PROT 5.2 g/dl (6.4-8.2)
[2021-01-28] MEDS: LACTOBACILLUS ACIDOPHILUS 1 TABLET PO SCH (09:35)
[2021-01-28] MEDS: FAMOTIDINE 10 MG TABLET PO SCH (09:36)
[2021-01-28] MEDS: ENOXAPARIN NA (PORCINE) 40 MG/0.4 ML DISP.SYRIN SQ SCH (09:36)
[2021-01-28] MEDS ORDERED: POTASSIUM CHLORIDE ORAL LIQUID 20 MEQ/15 ML PO ONE (13:06)
[2021-01-29] MEDS ORDERED: PIPERACILLIN/TAZOBACTAM 4.5 GM VIAL IVPB ONE ×4 (02:13→17:20)
[2021-01-29] MEDS ORDERED: DEXTROSE 5%-WATER 100 ML IVPB ONE ×3 (02:13→17:19)
[2021-01-29] MEDS: PIPERACILLIN/TAZOB 4.5 GM 4.5 GM in DEXTROSE 5%-WATER 100 ML IVPB SCH ×3 (02:43→17:22)
[2021-01-29] MEDS: MORPHINE SULFATE 2 MG/ML VIAL IVPUSH PRN ×3 (05:58→22:22)
[2021-01-29 09:00] LABS: EOS % 1.8 % (0-4.5); HEMATOCRIT 32.6 % (35.4-49); HEMOGLOBIN 11.1 GM/dL (11.7-16.9); LYMPH % 10.7 % (8-40); MCH 30.8 pg (25.7-33.7); MCHC 33.9 g/dl (32.0-35.9); MEAN CELL VOLUME 90.7 fl (80-96); MEAN PLT VOLUME 8.9 fl (7.5-11.1); MONO % 4.1 % (3.8-10.2); NEUT % 82.4 % (42.8-82.8); PLATELET COUNT 405 K/MM3 (134-434); RDW 14.7 % (11.9-15.9)
[2021-01-29 09:04] LABS: CALCIUM 7.9 mg/dL (8.5-10.1)
[2021-01-29 09:05] LABS: BLOOD UREA NITROGEN 6.3 mg/dL (7-18)
[2021-01-29] MEDS: ENOXAPARIN NA (PORCINE) 40 MG/0.4 ML DISP.SYRIN SQ SCH (09:08)
[2021-01-29] MEDS: LACTOBACILLUS ACIDOPHILUS 1 TABLET PO SCH (09:09)
[2021-01-29] MEDS: FAMOTIDINE 10 MG TABLET PO SCH (09:09)
[2021-01-29 09:10] LABS: BILIRUBIN,TOTAL 0.7 mg/dL (0.2-1); CREATININE 0.7 mg/dL (0.55-1.3); TOT PROT 5.5 g/dl (6.4-8.2)
[2021-01-29] MEDS: oxyCODONE HCL 5 MG TABLET PO PRN (12:29)
[2021-01-29] MEDS: KCL 10 MEQ IVPB 10 MEQ/100 ML INFUS.BAG IVPB SCH ×2 (12:57→14:39)
[2021-01-30] MEDS ORDERED: PIPERACILLIN/TAZOBACTAM 4.5 GM VIAL IVPB ONE ×3 (01:18→17:07)
[2021-01-30] MEDS ORDERED: DEXTROSE 5%-WATER 100 ML IVPB ONE ×3 (01:19→17:07)
[2021-01-30] MEDS: oxyCODONE HCL 5 MG TABLET PO PRN (01:32)
[2021-01-30] MEDS: PIPERACILLIN/TAZOB 4.5 GM 4.5 GM in DEXTROSE 5%-WATER 100 ML IVPB SCH ×3 (01:37→17:13)
[2021-01-30] MEDS: MORPHINE SULFATE 2 MG/ML VIAL IVPUSH PRN (05:38)
[2021-01-30] MEDS: ENOXAPARIN NA (PORCINE) 40 MG/0.4 ML DISP.SYRIN SQ SCH (09:17)
[2021-01-30] MEDS: FAMOTIDINE 10 MG TABLET PO SCH (09:17)
[2021-01-30] MEDS: LACTOBACILLUS ACIDOPHILUS 1 TABLET PO SCH (09:17)
[2021-01-30 09:25] LABS: BASO % 1.1 % (0-2.0); EOS % 2.4 % (0-4.5); HEMATOCRIT 32.7 % (35.4-49); LYMPH % 14.3 % (8-40); MCH 29.9 pg (25.7-33.7); MCHC 33.6 g/dl (32.0-35.9); MEAN PLT VOLUME 8.5 fl (7.5-11.1); MONO % 5.1 % (3.8-10.2); NEUT % 77.1 % (42.8-82.8); PLATELET COUNT 464 K/MM3 (134-434); RBC 3.67 M/mm3 (4.00-5.60); RDW 14.8 % (11.9-15.9); WHITE BLOOD COUNT 12.1 K/mm3 (4.0-10.0)
[2021-01-30 09:44] LABS: BLOOD UREA NITROGEN 6.4 mg/dL (7-18)
[2021-01-30 09:46] LABS: ALBUMIN 2.2 g/dl (3.4-5.0); MAGNESIUM 2.1 mg/dL (1.8-2.4)
[2021-01-30 09:49] LABS: CREATININE 0.8 mg/dL (0.55-1.3)
[2021-01-30 09:50] LABS: BILIRUBIN,TOTAL 0.5 mg/dL (0.2-1); TOT PROT 5.7 g/dl (6.4-8.2)
[2021-01-31] MEDS ORDERED: PIPERACILLIN/TAZOBACTAM 4.5 GM VIAL IVPB ONE ×3 (00:41→16:55)
[2021-01-31] MEDS ORDERED: DEXTROSE 5%-WATER 100 ML IVPB ONE ×3 (00:41→16:55)
[2021-01-31] MEDS: PIPERACILLIN/TAZOB 4.5 GM 4.5 GM in DEXTROSE 5%-WATER 100 ML IVPB SCH ×3 (01:09→17:21)
[2021-01-31] MEDS: ACETAMINOPHEN 325 MG TABLET (FP) PO PRN ×2 (01:12→11:26)
[2021-01-31 08:32] LABS: BASO % 0.7 % (0-2.0); EOS % 2.7 % (0-4.5); HEMOGLOBIN 11.1 GM/dL (11.7-16.9); LYMPH % 13.9 % (8-40); MCH 30.4 pg (25.7-33.7); MCHC 33.8 g/dl (32.0-35.9); MEAN CELL VOLUME 90.1 fl (80-96); MEAN PLT VOLUME 8.3 fl (7.5-11.1); MONO % 5.5 % (3.8-10.2); NEUT % 77.2 % (42.8-82.8); PLATELET COUNT 469 K/MM3 (134-434); RBC 3.66 M/mm3 (4.00-5.60); RDW 14.8 % (11.9-15.9); WHITE BLOOD COUNT 10.6 K/mm3 (4.0-10.0)
[2021-01-31 09:04] LABS: ALBUMIN 2.2 g/dl (3.4-5.0); BLOOD UREA NITROGEN 8.9 mg/dL (7-18); CALCIUM 8.4 mg/dL (8.5-10.1)
[2021-01-31 09:07] LABS: BILIRUBIN,TOTAL 0.4 mg/dL (0.2-1); CREATININE 0.9 mg/dL (0.55-1.3)
[2021-01-31 09:08] LABS: TOT PROT 5.8 g/dl (6.4-8.2)
[2021-01-31] MEDS ORDERED: MORPHINE SULFATE 2 MG/ML VIAL IVPUSH PRN (10:56)
[2021-01-31] MEDS: LACTOBACILLUS ACIDOPHILUS 1 TABLET PO SCH (11:25)
[2021-01-31] MEDS: ENOXAPARIN NA (PORCINE) 40 MG/0.4 ML DISP.SYRIN SQ SCH (11:25)
[2021-01-31] MEDS: FAMOTIDINE 10 MG TABLET PO SCH (11:26)
[2021-01-31 14:58] VITALS: BMI 27.8
[2021-01-31] MEDS ORDERED: INSULIN (LEVEMIR) 100 UNITS/ML UNITS SQ ONE (18:23)
[2021-01-31] MEDS ORDERED: INSULIN (NOVOLOG) ASPART 100 UNITS/ML 10ML VIAL ONE (18:23)
[2021-01-31] MEDS ORDERED: PT OWN MED DRAWER 7, Y5N ONE (18:24)
[2021-02-01] MEDS ORDERED: DEXTROSE 5%-WATER 100 ML IVPB ONE ×2 (02:07→08:03)
[2021-02-01] MEDS ORDERED: PIPERACILLIN/TAZOBACTAM 4.5 GM VIAL IVPB ONE ×2 (02:07→08:02)
[2021-02-01] MEDS: PIPERACILLIN/TAZOB 4.5 GM 4.5 GM in DEXTROSE 5%-WATER 100 ML IVPB SCH ×2 (02:16→09:42)
[2021-02-01] MEDS: LACTOBACILLUS ACIDOPHILUS 1 TABLET PO SCH (09:42)
[2021-02-01] MEDS: ENOXAPARIN NA (PORCINE) 40 MG/0.4 ML DISP.SYRIN SQ SCH (09:42)
[2021-02-01] MEDS: ACETAMINOPHEN 325 MG TABLET (FP) PO PRN ×2 (09:43→18:42)
[2021-02-01] MEDS: FAMOTIDINE 10 MG TABLET PO SCH (09:47)
[2021-02-01 13:53] LABS: HEMATOCRIT 35.8 % (35.4-49); HEMOGLOBIN 12.1 GM/dL (11.7-16.9); MCH 30.4 pg (25.7-33.7); MCHC 33.6 g/dl (32.0-35.9); MEAN CELL VOLUME 90.4 fl (80-96); MEAN PLT VOLUME 8.7 fl (7.5-11.1); PLATELET COUNT 488 K/MM3 (134-434); RBC 3.96 M/mm3 (4.00-5.60)
[2021-02-02 08:42] LABS: BASO % 1.1 % (0-2.0); EOS % 2.5 % (0-4.5); HEMATOCRIT 33.9 % (35.4-49); HEMOGLOBIN 11.5 GM/dL (11.7-16.9); LYMPH % 22.7 % (8-40); MCH 30.7 pg (25.7-33.7); MEAN CELL VOLUME 90.3 fl (80-96); MEAN PLT VOLUME 8.4 fl (7.5-11.1); MONO % 8.1 % (3.8-10.2); NEUT % 65.6 % (42.8-82.8); PLATELET COUNT 503 K/MM3 (134-434); RBC 3.76 M/mm3 (4.00-5.60); RDW 15.3 % (11.9-15.9); WHITE BLOOD COUNT 9.1 K/mm3 (4.0-10.0)
[2021-02-02 09:09] LABS: CALCIUM 8.4 mg/dL (8.5-10.1)
[2021-02-02 09:10] LABS: ALBUMIN 2.5 g/dl (3.4-5.0); BLOOD UREA NITROGEN 11.2 mg/dL (7-18)
[2021-02-02 09:13] LABS: CREATININE 0.7 mg/dL (0.55-1.3)
[2021-02-02 09:14] LABS: BILIRUBIN,TOTAL 0.5 mg/dL (0.2-1)
[2021-02-02 09:15] LABS: TOT PROT 6.4 g/dl (6.4-8.2)
[2021-02-02] MEDS: LACTOBACILLUS ACIDOPHILUS 1 TABLET PO SCH (09:49)
[2021-02-02] MEDS: ENOXAPARIN NA (PORCINE) 40 MG/0.4 ML DISP.SYRIN SQ SCH (09:50)
[2021-02-02] MEDS: FAMOTIDINE 10 MG TABLET PO SCH (09:50)
[2021-02-03] MEDS: ENOXAPARIN NA (PORCINE) 40 MG/0.4 ML DISP.SYRIN SQ SCH (09:45)
[2021-02-03] MEDS: LACTOBACILLUS ACIDOPHILUS 1 TABLET PO SCH (09:45)
[2021-02-03] MEDS: FAMOTIDINE 10 MG TABLET PO SCH (09:45)
[2021-02-03 14:23] VITALS: BP 124/73; PULSE 66; TEMP 98.2
== END 2021-02-03 14:36 | DRG 262 ==
LOC: JER 20:04 → JERBED 01-24 02:06 → J5S 01-24 17:53
PROVIDERS: ADMIT Student in an Organized Health Care Education/Training Program; ATTEND Internal Medicine
PROC: 0FJ44ZZ Inspection of Gallbladder, Percutaneous Endoscopic Approach (ICD-10-PCS; 2021-01-24)
PROC: 0DNW0ZZ Release Peritoneum, Open Approach (ICD-10-PCS; 2021-01-24)
PROC: 0DNU3ZZ Release Omentum, Percutaneous Approach (ICD-10-PCS; 2021-01-24)
PROC: 0FT40ZZ Resection of Gallbladder, Open Approach (ICD-10-PCS; principal; 2021-01-24 11:30)
DX: K81.0 Acute cholecystitis (principal); K82.1 Hydrops of gallbladder; G35 Multiple sclerosis; K82.A1 Gangrene of gallbladder in cholecystitis; K21.9 Gastro-esophageal reflux disease without esophagitis; R94.5 Abnormal results of liver function studies; M81.0 Age-related osteoporosis without current pathological fracture; Z74.09 Other reduced mobility; M21.379 Foot drop, unspecified foot; J98.11 Atelectasis; J90 Pleural effusion, not elsewhere classified; E66.9 Obesity, unspecified; Z68.27 Body mass index [BMI] 27.0-27.9, adult; K66.0 Peritoneal adhesions (postprocedural) (postinfection); Z86.718 Personal history of other venous thrombosis and embolism
CPT/HCPCS: 36415; 70450-TC; 71045-TC-FY; 71250-TC; 72128-TC; 72131-TC; 74018-TC-FY; 74176-TC; 74177-TC; 76705-TC; 80053; 80307; 81003; 82150; 83605; 83690; 83735; 84484; 85025; 85027; 85379; 85610; 85730; 86850; 86900; 86901; 87040; 87070; 87086; 87205; 88304-TC; 93005; 93010; 94010; 94760; 97162-GP; 99285-25; C9803; Q9967; U0003; U0005

== ENCOUNTER 2023-08-04 12:25 | Emergency (ER) | payer OTHER ==
[2023-08-04 12:47] VITALS: RESP 18; BMI 24.7
[2023-08-04 14:28] LABS: HEMATOCRIT 46.4 % (35.4-49); HEMOGLOBIN 15.5 GM/dL (11.7-16.9); MCH 29.4 pg (25.7-33.7); MCHC 33.4 g/dl (32.0-35.9); MEAN CELL VOLUME 88.2 fl (80-96); RBC 5.26 M/mm3 (4.00-5.60); RDW 13.9 % (11.9-15.9)
[2023-08-04 14:36] LABS: POTASSIUM 4.2 mmol/L (3.5-5.1)
[2023-08-04 14:37] LABS: WHITE BLOOD COUNT 18.7 K/mm3 (4.0-10.0)
[2023-08-04 14:38] LABS: ALBUMIN 3.4 g/dl (3.4-5.0); BLOOD UREA NITROGEN 18.3 mg/dL (7-18); CALCIUM 8.9 mg/dL (8.5-10.1); MEAN PLT VOLUME 9.1 fl (7.5-11.1); PLATELET COUNT 309 10^3/uL (134-434)
[2023-08-04 14:41] LABS: CREATININE 0.9 mg/dL (0.55-1.3)
[2023-08-04 14:43] LABS: BILIRUBIN,TOTAL 0.5 mg/dL (0.2-1); TOT PROT 7.1 g/dl (6.4-8.2)
[2023-08-04 15:33] LABS: ANISOCYTOSIS 1+; MACROCYTOSIS 0
[2023-08-04 16:49] LABS: PH,URINE 6.5 (5.0-8.0); URINE APPEARANCE CLEAR; URINE BILIRUBIN NEGATIVE (NEGATIVE); URINE COLOR YELLOW; URINE GLUCOSE (UA) NEGATIVE (NEGATIVE); URINE KETONE NEGATIVE (NEGATIVE); URINE LEUK ESTERASE NEGATIVE (NEGATIVE); URINE NITRITE NEGATIVE (NEGATIVE); URINE PROTEIN NEGATIVE (NEGATIVE)
[2023-08-04 20:34] VITALS: BP 115/57; PULSE 73; TEMP 97.6
== END 2023-08-04 20:34 ==
LOC: JER 12:25
DX: G35 Multiple sclerosis (principal); R51.9 Headache, unspecified; H57.13 Ocular pain, bilateral; R42 Dizziness and giddiness
CPT/HCPCS: 36415; 70553-TC; 80053; 81003; 85025; 87086; 99285-25